=== PATIENT | female | born 1960 | race Caucasian/White ===

== ENCOUNTER → 2018-10-19 | Outpatient (CLI) | payer BC | LOC: LAB.O 11:40 | PROVIDERS: ATTEND Nurse Practitioner Family | DX: K57.30 Diverticulosis of large intestine without perforation or abscess without bleeding (principal) ==

== ENCOUNTER → 2018-11-03 | Outpatient (CLI) | payer BC ==
--- NOTE | 2018-11-03 13:40 | RAD ---
EXAM DESCRIPTION: XR ABDOMEN 1 VIEW (KUB) CLINICAL HISTORY: HEMATURIA COMPARISON: CT abdomen and pelvis December 05, 2008 TECHNIQUE: KUB FINDINGS: A single view of the abdomen demonstrates surgical clips from prior cholecystectomy. Moderate stool in the right and left colon is present without obstruction. A distinct or definite renal mass is not apparent. No unusual renal calculi are noted. In the left side of the lower pelvis there is an irregular calcification of uncertain significance. This was not evident on remote 2009 CT examination. Possibility of a bladder or distal ureteral stone impacted at the UVJ could not be entirely excluded. IMPRESSION: Nonspecific abdomen one view with irregular approximate five by calcification left lower pelvis, of uncertain significance. A distal left ureteral or bladder stone cannot be excluded. Electronically signed by: Anam Duran MD 11/03/2018 1:37 PM MEDICAID PLAN COMPLIANCE DIRECTOR
== END ==
LOC: LAB.O 11:49
PROVIDERS: ATTEND Nurse Practitioner Family
DX: R30.0 Dysuria (principal); R31.9 Hematuria, unspecified